=== PATIENT | male | born 1970 | race Caucasian/White ===

== ENCOUNTER 2020-12-06 22:10 | Emergency (ER) | payer BC ==
[~2020-12-06 22:10] MED LIST: Iopamidol-370 76% 500 ML 1 ML ONE
[2020-12-06 22:51] LABS: #Eosinphils 0.3 thou/uL (0.0-0.7); #Lymphocytes 1.4 thou/uL (1.20-3.40); #Monocytes 1.1 thou/uL (0.11-0.59); #Neutrophils 8.6 thou/uL (1.40-6.50); %Basophils 0.4 % (0.0-1.0); %Eosinophils 2.6 % (0.0-10.0); %Lymphocytes 11.9 % (21.0-51.0); %Monocytes 9.5 % (0.0-10.0); %Neutrophils 75.5 % (42.0-75.0); Hemoglobin 11.5 g/dL (14.0-18.0); Mean Corpuscular HGB CONC 34.3 g/dL (32.0-36.0); Mean Corpuscular Hemoglobin 28.7 pg (27.0-31.0); Mean Corpuscular Volume 83.6 fL (78.0-98.0); Mean Platelet Volume 7.1 fL (7.4-10.4); Platelet Count 261 thou/uL (130-400); RBC Distribution Width 11.4 % (11.5-14.5); Red Blood Cell (RBC) Count 4.02 mill/uL (4.70-6.10); White Blood Cell (WBC) Count 11.3 thou/uL (4.8-10.8)
[2020-12-06] MEDS ORDERED: Morphine 4 MG/ML VIAL ONE (23:07)
[2020-12-06] MEDS ORDERED: Acetaminophen 500 MG TAB ONE (23:08)
[2020-12-06] MEDS ORDERED: Ondansetron PF 4 MG/2 ML Vial ONE (23:08)
[2020-12-06 23:10] LABS: ALT (SGPT) 25 U/L (8-55); AST (SGOT) 31 U/L (5-34); Albumin 3.4 g/dL (3.5-5.0); Alkaline Phosphatase 121 U/L (40-110); Anion Gap 13 mmol/L (10-20); BUN (Urea Nitrogen) 13 mg/dL (8.9-20.6); Bilirubin, Total 0.7 mg/dL (0.2-1.2); Calc. Creatinine Clearance 0 mL/min (70-130); Calcium 8.6 mg/dL (7.8-10.44); Carbon Dioxide 33 mmol/L (22-29); Chloride 95 mmol/L (98-107); Globulin 3.1 g/dL (2.4-3.5); Glucose 116 mg/dL (70-105); Potassium 3.6 mmol/L (3.5-5.1); Protein, Total 6.5 g/dL (6.0-8.3); Sodium 137 mmol/L (136-145)
[2020-12-06] MEDS ORDERED: Ketorolac Tromethamine 30 MG/ML VIAL ONE (23:13)
[2020-12-07 01:20] LABS: Bacteria/HPF None Seen HPF (None Seen); Bilirubin Negative (Negative); Blood, Urine 1+ (Negative); Clarity Clear (Clear); Glucose, Urine (Dipstick) Normal (Negative); Ketone, Urine Negative (Negative); Leukocyte Negative Leu/uL (Negative); Nitrite Negative (Negative); Protein, Urine (Dipstick) 20 mg/dL (Neg-Trace); Squamous Epithelial None Seen HPF (0-3)
[2020-12-07 01:21] LABS: Specific Gravity, Urine 1.052 (1.002-1.036)
== END 2020-12-07 02:30 | disposition home or self-care (01) ==
LOC: ERS 22:10
DX: R10.9 Unspecified abdominal pain (principal); N13.30 Unspecified hydronephrosis; R59.0 Localized enlarged lymph nodes; Z87.442 Personal history of urinary calculi
CPT/HCPCS: 36415; 74177; 80053; 81003; 81015; 85025; 96374; 96375; J1885; J2270; J2405; Q9967

== ENCOUNTER 2020-12-16 08:16 | Outpatient (CLI) | payer BC ==
[2020-12-16 09:36] LABS: Bilirubin Neg (Negative); Blood, Urine 25 (Negative); Glucose, Urine (Dipstick) Normal (Negative); Ketone, Urine Negative (Negative); Leukocyte Negative (Negative); Nitrite Negative (Negative); Protein, Urine (Dipstick) Negative (Neg-Trace); Specific Gravity, Urine 1.005 (1.002-1.036); Urobilinogen Normal mg/dL (Less than 2)
[2020-12-16 09:41] LABS: Hemoglobin 10.7 g/dL (13.5-17.5); Mean Corpuscular HGB CONC 32.8 g/dL (32.0-36.0); Mean Corpuscular Hemoglobin 26.9 pg (27.0-33.0); Mean Corpuscular Volume 81.9 fl (81.2-95.1); Mean Platelet Volume 9.1 fl (7.4-10.4); Platelet Count 374 10x3/uL (150-450); RBC Distribution Width 12.6 % (11.5-14.5); Red Blood Cell (RBC) Count 3.98 10x6/uL (4.32-5.72); White Blood Cell (WBC) Count 17.5 10x3/uL (3.5-10.5)
[2020-12-16 09:50] LABS: Clarity Clear (Clear)
[2020-12-16 09:51] LABS: RBC/HPF 0-3 HPF (0-3); WBC/HPF 0-3 HPF (0-3)
[2020-12-16 09:52] LABS: Bacteria/HPF None Seen HPF (None Seen); Squamous Epithelial None Seen HPF (0-3)
[2020-12-16 09:58] LABS: INR-International Normal Ratio 1.1; PTT 30.1 sec (22.0-33.0); Prothrombin Time 11.8 sec (9.5-12.1)
[2020-12-16 10:18] LABS: Anion Gap 18 mmol/L (10-20); BUN (Urea Nitrogen) 19 mg/dL (8.9-20.6); Calc. Creatinine Clearance 0 mL/min (70-130); Calcium 9.1 mg/dL (7.8-10.44); Carbon Dioxide 30 mmol/L (22-29); Chloride 90 mmol/L (98-107); Glucose 152 mg/dL (70-105); Potassium 3.8 mmol/L (3.5-5.1); Sodium 134 mmol/L (136-145)
[2020-12-16 23:09] LABS: SARS-CoV-2 PCR by NAA Not Detected (NotDetected)
== END 2020-12-16 08:17 | disposition home or self-care (01) ==
LOC: LABBT 08:16
PROVIDERS: ATTEND Urology
DX: Z01.818 Encounter for other preprocedural examination (principal); N13.30 Unspecified hydronephrosis; R19.02 Left upper quadrant abdominal swelling, mass and lump; R59.0 Localized enlarged lymph nodes; Z20.822 Contact with and (suspected) exposure to COVID-19
CPT/HCPCS: 80048; 81001; 85027; 85610; 85730; 87086; 93005; 93010; U0003; U0005

== ENCOUNTER 2020-12-17 10:28 | Inpatient (IN) | payer BC ==
[2020-12-17 11:12] LABS: Hemoglobin 10.6 g/dL (14.0-18.0); Mean Corpuscular Hemoglobin 27.8 pg (27.0-31.0); Mean Corpuscular Volume 84.1 fL (78.0-98.0); Mean Platelet Volume 6.4 fL (7.4-10.4); Platelet Count 411 thou/uL (130-400); RBC Distribution Width 11.6 % (11.5-14.5); Red Blood Cell (RBC) Count 3.81 mill/uL (4.70-6.10); White Blood Cell (WBC) Count 20.4 thou/uL (4.8-10.8)
[2020-12-17 11:32] LABS: ALT (SGPT) 21 U/L (8-55); AST (SGOT) 25 U/L (5-34); Albumin 3.2 g/dL (3.5-5.0); Alkaline Phosphatase 166 U/L (40-110); Anion Gap 15 mmol/L (10-20); BUN (Urea Nitrogen) 27 mg/dL (8.9-20.6); Bilirubin, Total 0.7 mg/dL (0.2-1.2); Calc. Creatinine Clearance 0 mL/min (70-130); Calcium 8.6 mg/dL (7.8-10.44); Carbon Dioxide 35 mmol/L (22-29); Chloride 88 mmol/L (98-107); Globulin 3.5 g/dL (2.4-3.5); Glucose 120 mg/dL (70-105); Protein, Total 6.7 g/dL (6.0-8.3); Sodium 134 mmol/L (136-145)
[2020-12-17 11:46] LABS: Band 3 % (5-11); Eosinophils 3 % (0-10); Lymphocytes 9 % (21-51); MDiff Complete? YES; Monocytes 5 % (0-10); Neutrophil 79 % (42-75); Platelet Morphology Comment Appears Adequate; RBC Morphology Normal
[2020-12-17] MEDS ORDERED: Morphine 4 MG/ML VIAL ONE (13:05)
[2020-12-17] MEDS ORDERED: Ondansetron PF 4 MG/2 ML Vial ONE (13:05)
[2020-12-17 13:23] LABS: Magnesium 2.7 mg/dL (1.6-2.6)
[2020-12-17 13:58] LABS: INR-International Normal Ratio 1.1; PTT 39.1 sec (22.9-36.1); Prothrombin Time 14.5 sec (12.0-14.7)
[2020-12-17] MEDS ORDERED: HYDROmorphone 0.5 MG/0.5 ML SYRINGE ONE ×2 (14:35→16:34)
[2020-12-17 17:08] LABS: Bilirubin Negative (Negative); Blood, Urine Negative (Negative); Clarity Clear (Clear); Glucose, Urine (Dipstick) Normal (Negative); Ketone, Urine Negative (Negative); Leukocyte Negative Leu/uL (Negative); Nitrite Negative (Negative); Protein, Urine (Dipstick) Negative (Neg-Trace); Specific Gravity, Urine 1.012 (1.002-1.036); Urobilinogen Normal mg/dL (Less than 2)
[2020-12-17] MEDS ORDERED: hydrALAZINE 20 MG/ML VIAL SLOW IVP PRN (18:10)
[2020-12-17] MEDS ORDERED: Acetaminophen 325 MG TAB PO PRN (18:10)
[2020-12-17] MEDS: Ondansetron PF 4 MG/2 ML Vial IVP PRN (18:38)
[2020-12-17 18:53] VITALS: BMI 30.4
[2020-12-17] MEDS ORDERED: HYDROcodone/Acetaminophen 5/325 mg Tablet PO PRN (21:04)
[2020-12-17] MEDS: HYDROcodone/Acetaminophen 10/325 mg Tablet PO PRN (21:25)
[2020-12-17] MEDS: Heparin 5,000 UNITS/ML VIAL SC SCH (21:31)
[2020-12-17] MEDS: Morphine 2 MG/ML VIAL SLOW IVP PRN (22:56)
[2020-12-18] MEDS: Sodium Chloride 0.9% 1,000 ML IV SCH ×5 (04:56→17:45)
[2020-12-18] MEDS: Ondansetron PF 4 MG/2 ML Vial IVP PRN ×4 (05:34→21:28)
[2020-12-18] MEDS: HYDROcodone/Acetaminophen 10/325 mg Tablet PO PRN ×3 (05:58→17:49)
[2020-12-18 07:07] LABS: #Basophils 0.1 thou/uL (0.0-0.2); #Eosinphils 0.4 thou/uL (0.0-0.7); #Lymphocytes 1.2 thou/uL (1.20-3.40); #Monocytes 1.3 thou/uL (0.11-0.59); #Neutrophils 17.1 thou/uL (1.40-6.50); %Basophils 0.3 % (0.0-1.0); %Lymphocytes 5.9 % (21.0-51.0); %Monocytes 6.6 % (0.0-10.0); %Neutrophils 85.2 % (42.0-75.0); Hemoglobin 9.9 g/dL (14.0-18.0); Mean Corpuscular HGB CONC 32.1 g/dL (32.0-36.0); Mean Platelet Volume 6.5 fL (7.4-10.4); Platelet Count 391 thou/uL (130-400); RBC Distribution Width 11.6 % (11.5-14.5); Red Blood Cell (RBC) Count 3.66 mill/uL (4.70-6.10); White Blood Cell (WBC) Count 20.1 thou/uL (4.8-10.8)
[2020-12-18 07:31] LABS: Anion Gap 16 mmol/L (10-20); BUN (Urea Nitrogen) 32 mg/dL (8.9-20.6); Calc. Creatinine Clearance 19 mL/min (70-130); Carbon Dioxide 29 mmol/L (22-29); Chloride 89 mmol/L (98-107); Glucose 100 mg/dL (70-105); Potassium 3.8 mmol/L (3.5-5.1); Sodium 130 mmol/L (136-145)
[2020-12-18] MEDS: Heparin 5,000 UNITS/ML VIAL SC SCH ×3 (08:06→20:10)
[2020-12-18] MEDS: Morphine 2 MG/ML VIAL SLOW IVP PRN ×3 (09:58→20:05)
[2020-12-18] MEDS ORDERED: ALPRAZolam 0.25 MG TAB PO SCH (12:30)
[2020-12-18] MEDS: ALPRAZolam 0.25 MG TAB PO PRN (21:36)
[2020-12-19] MEDS: Sodium Chloride 0.9% 1,000 ML IV SCH ×6 (00:58→23:14)
[2020-12-19 06:25] LABS: Hemoglobin 11.2 g/dL (14.0-18.0); Mean Corpuscular HGB CONC 32.6 g/dL (32.0-36.0); Mean Corpuscular Hemoglobin 27.5 pg (27.0-31.0); Mean Corpuscular Volume 84.2 fL (78.0-98.0); Mean Platelet Volume 6.6 fL (7.4-10.4); Platelet Count 441 thou/uL (130-400); RBC Distribution Width 11.8 % (11.5-14.5); Red Blood Cell (RBC) Count 4.07 mill/uL (4.70-6.10); White Blood Cell (WBC) Count 24.9 thou/uL (4.8-10.8)
[2020-12-19 06:38] LABS: ALT (SGPT) 18 U/L (8-55); AST (SGOT) 27 U/L (5-34); Albumin 3.1 g/dL (3.5-5.0); Alkaline Phosphatase 227 U/L (40-110); Anion Gap 21 mmol/L (10-20); BUN (Urea Nitrogen) 39 mg/dL (8.9-20.6); Bilirubin, Total 0.6 mg/dL (0.2-1.2); Calc. Creatinine Clearance 16 mL/min (70-130); Calcium 8.2 mg/dL (7.8-10.44); Carbon Dioxide 25 mmol/L (22-29); Chloride 90 mmol/L (98-107); Globulin 3.7 g/dL (2.4-3.5); Glucose 84 mg/dL (70-105); Potassium 4.5 mmol/L (3.5-5.1); Protein, Total 6.8 g/dL (6.0-8.3); Sodium 131 mmol/L (136-145)
[2020-12-19] MEDS: Heparin 5,000 UNITS/ML VIAL SC SCH ×2 (07:40→14:20)
[2020-12-19 08:48] LABS: Band 9 % (5-11); Eosinophils 4 % (0-10); Lymphocytes 8 % (21-51); MDiff Complete? YES; Monocytes 10 % (0-10); Neutrophil 69 % (42-75); Platelet Morphology Comment Appears Increased; Polychromasia SLIGHT = 2-3 cells (100X) (0-2/hpf)
[2020-12-19] MEDS ORDERED: Fentanyl 100 MCG/2 ML VIAL ONE ×2 (09:44→10:23)
[2020-12-19] MEDS ORDERED: B & O 30 MG SUPP ONE (10:12)
[2020-12-19] MEDS ORDERED: Iothalamate Meglumine 60% 50 ML VIAL FS ONE (10:12)
[2020-12-19] MEDS ORDERED: SUGAMMADEX SODIUM 200 MG/2 ML VIAL ONE (10:23)
[2020-12-19] MEDS ORDERED: PROPOFOL 200 MG/20 ML VIAL ONE (10:51)
[2020-12-19] MEDS ORDERED: Succinylcholine 200 MG/10 ml SYRINGE FS ONE (10:51)
[2020-12-19] MEDS ORDERED: Ondansetron PF 4 MG/2 ML Vial ONE (10:51)
[2020-12-19] MEDS ORDERED: Dexamethasone 20 MG/5 ML VIAL ONE (10:51)
[2020-12-19] MEDS ORDERED: Promethazine HCl 25 MG/ML VIAL IM PRN (12:13)
[2020-12-19] MEDS ORDERED: Ondansetron HCl/PF 4 MG/2 ML Vial IVP PRN (12:13)
[2020-12-19] MEDS ORDERED: Promethazine HCl 25 MG/ML VIAL IVPB PRN (12:13)
[2020-12-19] MEDS ORDERED: Oxybutynin 5 MG TAB PO PRN (12:32)
[2020-12-19] MEDS ORDERED: Labetalol HCl 100 MG/20 ML VIAL ONE (13:12)
[2020-12-19] MEDS: Morphine 2 MG/ML VIAL SLOW IVP PRN ×2 (13:51→20:52)
[2020-12-19] MEDS: HYDROcodone/Acetaminophen 10/325 mg Tablet PO PRN ×2 (15:34→21:50)
[2020-12-19] MEDS ORDERED: Polyethylene Glycol 3350 17 GM Packet PO PRN (20:32)
[2020-12-19] MEDS: ALPRAZolam 0.25 MG TAB PO PRN (23:15)
[2020-12-20] MEDS: Sodium Chloride 0.9% 1,000 ML IV SCH ×3 (03:30→16:59)
[2020-12-20] MEDS: Morphine 2 MG/ML VIAL SLOW IVP PRN ×6 (03:31→22:21)
[2020-12-20] MEDS: HYDROcodone/Acetaminophen 10/325 mg Tablet PO PRN ×5 (04:07→23:51)
[2020-12-20 07:16] LABS: Band 4 % (5-11); Lymphocytes 5 % (21-51); MDiff Complete? YES; Mean Corpuscular HGB CONC 32.5 g/dL (32.0-36.0); Mean Corpuscular Hemoglobin 27.5 pg (27.0-31.0); Mean Corpuscular Volume 84.6 fL (78.0-98.0); Mean Platelet Volume 6.7 fL (7.4-10.4); Monocytes 3 % (0-10); Neutrophil 88 % (42-75); Platelet Count 456 thou/uL (130-400); RBC Distribution Width 11.9 % (11.5-14.5); Red Blood Cell (RBC) Count 3.64 mill/uL (4.70-6.10); White Blood Cell (WBC) Count 23.9 thou/uL (4.8-10.8)
[2020-12-20 07:59] LABS: ALT (SGPT) 14 U/L (8-55); AST (SGOT) 19 U/L (5-34); Albumin 2.8 g/dL (3.5-5.0); Alkaline Phosphatase 195 U/L (40-110); Anion Gap 14 mmol/L (10-20); BUN (Urea Nitrogen) 28 mg/dL (8.9-20.6); Bilirubin, Total 0.3 mg/dL (0.2-1.2); Calc. Creatinine Clearance 37 mL/min (70-130); Calcium 7.9 mg/dL (7.8-10.44); Carbon Dioxide 27 mmol/L (22-29); Chloride 98 mmol/L (98-107); Globulin 3.2 g/dL (2.4-3.5); Glucose 149 mg/dL (70-105); Potassium 4.3 mmol/L (3.5-5.1); Sodium 135 mmol/L (136-145)
[2020-12-20] MEDS: ALPRAZolam 0.25 MG TAB PO PRN (19:39)
[2020-12-21] MEDS: Sodium Chloride 0.9% 1,000 ML IV SCH ×2 (01:28→07:36)
[2020-12-21] MEDS: Morphine 2 MG/ML VIAL SLOW IVP PRN ×5 (01:59→21:06)
[2020-12-21] MEDS: ALPRAZolam 0.25 MG TAB PO PRN ×2 (04:36→21:08)
[2020-12-21] MEDS: HYDROcodone/Acetaminophen 10/325 mg Tablet PO PRN ×5 (04:36→22:35)
[2020-12-21 07:44] LABS: Anion Gap 12 mmol/L (10-20); BUN (Urea Nitrogen) 13 mg/dL (8.9-20.6); Calc. Creatinine Clearance 85 mL/min (70-130); Carbon Dioxide 27 mmol/L (22-29); Chloride 97 mmol/L (98-107); Glucose 93 mg/dL (70-105); Sodium 132 mmol/L (136-145)
[2020-12-21 09:17] LABS: Band 9 % (5-11); Hemoglobin 9.6 g/dL (14.0-18.0); Lymphocytes 5 % (21-51); MDiff Complete? YES; Mean Corpuscular HGB CONC 32.4 g/dL (32.0-36.0); Mean Corpuscular Hemoglobin 27.4 pg (27.0-31.0); Mean Corpuscular Volume 84.5 fL (78.0-98.0); Mean Platelet Volume 6.6 fL (7.4-10.4); Monocytes 7 % (0-10); Neutrophil 79 % (42-75); Platelet Count 424 thou/uL (130-400); White Blood Cell (WBC) Count 25.2 thou/uL (4.8-10.8)
[2020-12-21] MEDS ORDERED: Sodium Chloride 0.9% 1,000 ML IV SCH (12:14)
[2020-12-22] MEDS: Morphine 2 MG/ML VIAL SLOW IVP PRN ×5 (00:43→16:29)
[2020-12-22] MEDS: HYDROcodone/Acetaminophen 10/325 mg Tablet PO PRN ×5 (01:47→17:08)
[2020-12-22 06:55] LABS: Hemoglobin 10.6 g/dL (14.0-18.0); Mean Corpuscular HGB CONC 32.8 g/dL (32.0-36.0); Mean Corpuscular Hemoglobin 27.8 pg (27.0-31.0); Mean Corpuscular Volume 84.9 fL (78.0-98.0); Mean Platelet Volume 6.2 fL (7.4-10.4); Platelet Count 457 thou/uL (130-400); RBC Distribution Width 12.1 % (11.5-14.5); White Blood Cell (WBC) Count 29.1 thou/uL (4.8-10.8)
[2020-12-22 07:11] LABS: Anion Gap 14 mmol/L (10-20); BUN (Urea Nitrogen) 11 mg/dL (8.9-20.6); Calc. Creatinine Clearance 93 mL/min (70-130); Calcium 8.4 mg/dL (7.8-10.44); Carbon Dioxide 30 mmol/L (22-29); Chloride 93 mmol/L (98-107); Glucose 83 mg/dL (70-105); Potassium 4.3 mmol/L (3.5-5.1); Sodium 133 mmol/L (136-145)
[2020-12-22 07:27] LABS: Band 1 % (5-11); Lymphocytes 7 % (21-51); MDiff Complete? YES; Monocytes 5 % (0-10); Neutrophil 87 % (42-75); Platelet Morphology Comment Appears Increased; Polychromasia SLIGHT = 2-3 cells (100X) (0-2/hpf)
[2020-12-22] MEDS ORDERED: Enoxaparin Sodium 40 MG/0.4 ML SYRINGE SC SCH ×2 (16:00→21:00)
[2020-12-22 16:14] LABS: Bilirubin Negative (Negative); Blood, Urine 3+ (Negative); Clarity Clear (Clear); Glucose, Urine (Dipstick) Normal (Negative); Ketone, Urine Negative (Negative); Leukocyte 500 Leu/uL (Negative); Nitrite Negative (Negative); Protein, Urine (Dipstick) 100 mg/dL (Neg-Trace); RBC/HPF Greater than 50 HPF (0-3); Specific Gravity, Urine 1.017 (1.002-1.036); Squamous Epithelial None Seen HPF (0-3); WBC/HPF Greater than 50 HPF (0-3)
[2020-12-22 16:32] LABS: Bacteria/HPF 1+ HPF (None Seen)
[2020-12-22 16:33] LABS: Urine Culture Reflex Yes Yes
[2020-12-22] MEDS ORDERED: Clindamycin/D5W 900 MG in Premix Bag 1 BAG IVPB SCH (18:45)
[2020-12-22] MEDS: ALPRAZolam 0.25 MG TAB PO PRN (20:32)
[2020-12-22] MEDS: Morphine ER 15 MG TAB PO SCH (20:32)
[2020-12-22] MEDS: Enoxaparin Sodium 40 MG/0.4 ML SYRINGE SC SCH (20:36)
[2020-12-23 07:48] LABS: Anion Gap 13 mmol/L (10-20); BUN (Urea Nitrogen) 11 mg/dL (8.9-20.6); Calc. Creatinine Clearance 118 mL/min (70-130); Calcium 8.2 mg/dL (7.8-10.44); Carbon Dioxide 31 mmol/L (22-29); Chloride 92 mmol/L (98-107); Glucose 82 mg/dL (70-105); Potassium 3.6 mmol/L (3.5-5.1); Sodium 132 mmol/L (136-145)
[2020-12-23] MEDS: Morphine ER 15 MG TAB PO SCH (08:21)
[2020-12-23 08:31] LABS: Hemoglobin 9.5 g/dL (14.0-18.0); Mean Corpuscular HGB CONC 31.4 g/dL (32.0-36.0); Mean Corpuscular Hemoglobin 26.4 pg (27.0-31.0); Mean Corpuscular Volume 84.2 fL (78.0-98.0); Mean Platelet Volume 6.3 fL (7.4-10.4); Platelet Count 417 thou/uL (130-400); RBC Distribution Width 12.1 % (11.5-14.5); White Blood Cell (WBC) Count 29.1 thou/uL (4.8-10.8)
[2020-12-23 08:33] LABS: Band 7 % (5-11); Eosinophils 1 % (0-10); Lymphocytes 6 % (21-51); MDiff Complete? YES; Monocytes 4 % (0-10); Neutrophil 81 % (42-75); Platelet Morphology Comment Appears Increased; Polychromasia SLIGHT = 2-3 cells (100X) (0-2/hpf); Reactive Lymphocytes 1 % (0-10)
[2020-12-23] MEDS ORDERED: Clindamycin/D5W 900 mg/50 ml Premix Bag ONE (09:47)
[2020-12-23] MEDS ORDERED: Bupivacaine 0.25% HCL 30 ML VIAL ONE (10:17)
[2020-12-23] MEDS ORDERED: Lidocaine 1% w/Epinephrine 1:100K 20 ML VIAL ONE (10:17)
[2020-12-23] MEDS ORDERED: Fentanyl 100 MCG/2 ML VIAL ONE (10:51)
[2020-12-23] MEDS ORDERED: Ondansetron PF 4 MG/2 ML Vial ONE (11:10)
[2020-12-23] MEDS ORDERED: Lidocaine 1% PF 5 ML VIAL ONE (11:10)
[2020-12-23] MEDS ORDERED: PROPOFOL 200 MG/20 ML VIAL ONE (11:10)
[2020-12-23] MEDS ORDERED: Promethazine HCl 25 MG/ML VIAL IVPB PRN (11:50)
[2020-12-23] MEDS ORDERED: Ondansetron HCl/PF 4 MG/2 ML Vial IVP PRN (11:50)
[2020-12-23] MEDS ORDERED: Promethazine HCl 25 MG/ML VIAL IM PRN (11:50)
[2020-12-23] MEDS: HYDROcodone/Acetaminophen 10/325 mg Tablet PO PRN ×2 (12:29→16:23)
[2020-12-23] MEDS: Morphine ER 30 MG TAB PO SCH (20:35)
[2020-12-23] MEDS: Enoxaparin Sodium 40 MG/0.4 ML SYRINGE SC SCH (20:36)
[2020-12-23] MEDS: ALPRAZolam 0.25 MG TAB PO PRN (20:36)
[2020-12-24] MEDS: HYDROcodone/Acetaminophen 10/325 mg Tablet PO PRN ×4 (01:46→16:12)
[2020-12-24 07:30] LABS: #Basophils 0.1 thou/uL (0.0-0.2); #Eosinphils 0.3 thou/uL (0.0-0.7); #Lymphocytes 1.4 thou/uL (1.20-3.40); #Monocytes 1.6 thou/uL (0.11-0.59); #Neutrophils 21.6 thou/uL (1.40-6.50); %Basophils 0.2 % (0.0-1.0); %Eosinophils 1.1 % (0.0-10.0); %Lymphocytes 5.8 % (21.0-51.0); %Monocytes 6.3 % (0.0-10.0); %Neutrophils 86.6 % (42.0-75.0); Mean Corpuscular HGB CONC 32.9 g/dL (32.0-36.0); Mean Corpuscular Hemoglobin 27.3 pg (27.0-31.0); Mean Corpuscular Volume 83.2 fL (78.0-98.0); Mean Platelet Volume 6.3 fL (7.4-10.4); Platelet Count 423 thou/uL (130-400); RBC Distribution Width 12.1 % (11.5-14.5); Red Blood Cell (RBC) Count 3.28 mill/uL (4.70-6.10)
[2020-12-24 07:49] LABS: Anion Gap 12 mmol/L (10-20); BUN (Urea Nitrogen) 9 mg/dL (8.9-20.6); Calc. Creatinine Clearance 128 mL/min (70-130); Calcium 8.1 mg/dL (7.8-10.44); Carbon Dioxide 31 mmol/L (22-29); Chloride 94 mmol/L (98-107); Glucose 93 mg/dL (70-105); Potassium 3.5 mmol/L (3.5-5.1); Sodium 133 mmol/L (136-145)
[2020-12-24] MEDS: Morphine ER 30 MG TAB PO SCH (08:36)
[2020-12-24 16:23] VITALS: BP 151/97; TEMP 98.3
== END 2020-12-24 16:37 | disposition home or self-care (01) | DRG 660 ==
LOC: ERS 10:28 → T4-B 15:26
PROVIDERS: ADMIT Internal Medicine; ATTEND Internal Medicine
PROC: 0T788DZ Dilation of Bilateral Ureters with Intraluminal Device, Via Natural or Artificial Opening Endoscopic (ICD-10-PCS; 2020-12-19)
PROC: BT141ZZ Fluoroscopy of Kidneys, Ureters and Bladder using Low Osmolar Contrast (ICD-10-PCS; 2020-12-19)
PROC: 0JH60WZ Insertion of Totally Implantable Vascular Access Device into Chest Subcutaneous Tissue and Fascia, Open Approach (ICD-10-PCS; principal; 2020-12-23)
PROC: 02HV33Z Insertion of Infusion Device into Superior Vena Cava, Percutaneous Approach (ICD-10-PCS; 2020-12-23)
PROC: B5181ZA Fluoroscopy of Superior Vena Cava using Low Osmolar Contrast, Guidance (ICD-10-PCS; 2020-12-23)
DX: N13.6 Pyonephrosis (principal); C16.9 Malignant neoplasm of stomach, unspecified; E87.1 Hypo-osmolality and hyponatremia; E87.3 Alkalosis; C77.2 Secondary and unspecified malignant neoplasm of intra-abdominal lymph nodes; N17.9 Acute kidney failure, unspecified; N18.5 Chronic kidney disease, stage 5; E86.0 Dehydration; G89.29 Other chronic pain; M54.9 Dorsalgia, unspecified; D63.1 Anemia in chronic kidney disease; K59.00 Constipation, unspecified; J44.9 Chronic obstructive pulmonary disease, unspecified; N50.89 Other specified disorders of the male genital organs; R33.9 Retention of urine, unspecified; Z87.442 Personal history of urinary calculi; Z80.42 Family history of malignant neoplasm of prostate; Z82.49 Family history of ischemic heart disease and other diseases of the circulatory system; Z88.0 Allergy status to penicillin; R19.02 Left upper quadrant abdominal swelling, mass and lump; Z01.818 Encounter for other preprocedural examination
CPT/HCPCS: 36415; 51702; 71045; 71046; 74176; 74420; 78451; 80048; 80053; 81001; 81003; 82378; 82570; 83735; 83935; 84300; 85025; 85027; 85610; 85730; 86850; 86900; 86901; 87086; 93005; 93010; 93970; 96374; 96375; 96376; A9540; C1788; C2617; J1100; J1170; J1642; J1650; J1956; J2270; J2405; J2704; J3010; J3490; J7050; Q9961; S0020; U0003; U0005

== ENCOUNTER 2021-01-05 18:44 | Inpatient (IN) | payer BC ==
[2021-01-05 19:30] LABS: Hemoglobin 8.7 g/dL (14.0-18.0); Mean Corpuscular HGB CONC 33.6 g/dL (32.0-36.0); Mean Corpuscular Hemoglobin 27.7 pg (27.0-31.0); Mean Corpuscular Volume 82.5 fL (78.0-98.0); Mean Platelet Volume 6.9 fL (7.4-10.4); Platelet Count 442 thou/uL (130-400); RBC Distribution Width 13.5 % (11.5-14.5); Red Blood Cell (RBC) Count 3.15 mill/uL (4.70-6.10); White Blood Cell (WBC) Count 41.4 thou/uL (4.8-10.8)
[2021-01-05] MEDS ORDERED: Ondansetron PF 4 MG/2 ML Vial ONE (19:39)
[2021-01-05] MEDS ORDERED: Fentanyl 100 MCG/2 ML VIAL ONE (19:39)
[2021-01-05 19:47] LABS: ALT (SGPT) 46 U/L (8-55); AST (SGOT) 51 U/L (5-34); Alkaline Phosphatase 744 U/L (40-110); Anion Gap 23 mmol/L (10-20); BUN (Urea Nitrogen) 70 mg/dL (8.9-20.6); Bilirubin, Total 3.3 mg/dL (0.2-1.2); CK (CPK) 27 U/L (30-200); Calc. Creatinine Clearance 0 mL/min (70-130); Calcium 8.5 mg/dL (7.8-10.44); Carbon Dioxide 36 mmol/L (22-29); Globulin 3.6 g/dL (2.4-3.5); Glucose 109 mg/dL (70-105); Lipase 602 U/L (8-78); Potassium 4.5 mmol/L (3.5-5.1); Protein, Total 6.6 g/dL (6.0-8.3); Sodium 127 mmol/L (136-145)
[2021-01-05 19:51] LABS: Band 56 % (5-11); Lymphocytes 7 % (21-51); MDiff Complete? YES; Neutrophil 36 % (42-75); Platelet Morphology Comment Appears Increased; Polychromasia SLIGHT = 2-3 cells (100X) (0-2/hpf); Reactive Lymphocytes 1 % (0-10)
[2021-01-05 20:20] LABS: Chloride 73 mmol/L (98-107)
[2021-01-05] MEDS ORDERED: Morphine 4 MG/ML VIAL ONE (20:42)
[2021-01-05] MEDS ORDERED: Ondansetron ODT 4 MG TAB SL PRN (22:30)
[2021-01-05] MEDS ORDERED: Ondansetron PF 4 MG/2 ML Vial IVP PRN (22:30)
[2021-01-05] MEDS ORDERED: Acetaminophen 650 MG Suppository PR PRN (22:37)
[2021-01-05] MEDS ORDERED: Acetaminophen 325 MG TAB PO PRN (22:37)
[2021-01-05] MEDS: Morphine 4 MG/ML VIAL SLOW IVP PRN (22:46)
[2021-01-05 22:48] VITALS: BMI 29.9
[2021-01-05] MEDS: Sodium Chloride 0.9% 1,000 ML IV SCH (23:28)
[2021-01-05] MEDS ORDERED: Lorazepam 0.5 MG TAB PO SCH (23:30)
[2021-01-06] MEDS: Morphine 4 MG/ML VIAL SLOW IVP PRN ×5 (01:59→20:32)
[2021-01-06] MEDS: HYDROcodone/Acetaminophen 10/325 mg Tablet PO PRN ×3 (03:10→19:23)
[2021-01-06] MEDS ORDERED: Cefepime 2 GM in Sodium Chloride 0.9% 100 ML IVPB SCH (03:15)
[2021-01-06 03:52] LABS: Anion Gap 25 mmol/L (10-20); BUN (Urea Nitrogen) 72 mg/dL (8.9-20.6); Calc. Creatinine Clearance 15 mL/min (70-130); Calcium 7.8 mg/dL (7.8-10.44); Carbon Dioxide 31 mmol/L (22-29); Chloride 76 mmol/L (98-107); Glucose 98 mg/dL (70-105); Potassium 4.4 mmol/L (3.5-5.1); Sodium 128 mmol/L (136-145)
[2021-01-06 04:07] LABS: White Blood Cell (WBC) Count 46.9 thou/uL (4.8-10.8)
[2021-01-06] MEDS ORDERED: VANCOMYCIN 1.75 GM/350 ML BAG 1.75 GM in Premix Bag 1 BAG IVPB SCH (04:30)
[2021-01-06 04:43] LABS: Band 21 % (5-11); Hemoglobin 8.7 g/dL (14.0-18.0); Lymphocytes 3 % (21-51); MDiff Complete? YES; Mean Corpuscular HGB CONC 34.4 g/dL (32.0-36.0); Mean Corpuscular Hemoglobin 28.5 pg (27.0-31.0); Mean Corpuscular Volume 82.9 fL (78.0-98.0); Mean Platelet Volume 7.4 fL (7.4-10.4); Monocytes 3 % (0-10); Neutrophil 73 % (42-75); Platelet Count 472 thou/uL (130-400); Platelet Morphology Comment Appears Increased; RBC Distribution Width 13.6 % (11.5-14.5); Red Blood Cell (RBC) Count 3.06 mill/uL (4.70-6.10)
[2021-01-06] MEDS ORDERED: FLU VACC QS2021-22(6MOS UP)/PF 60 MCG/0.5 ML SYRINGE IM ONE (09:00)
[2021-01-06] MEDS ORDERED: Prevnar 13-Val Conj/PF 0.5 ML SYRINGE IM ONE (09:00)
[2021-01-06] MEDS: Sodium Chloride 0.9% 1,000 ML IV SCH ×3 (09:46→16:22)
[2021-01-06] MEDS: Heparin 5,000 UNITS/ML VIAL SC SCH ×3 (09:53→20:26)
[2021-01-06] MEDS ORDERED: Ondansetron HCl/PF 4 MG in Sodium Chloride 0.9% 50 ML IVPB PRN (10:04)
[2021-01-06] MEDS ORDERED: fentaNYL 50 mcg/hour Patch TD SCH (11:00)
[2021-01-06] MEDS: Pantoprazole 40 MG VIAL IVP SCH (13:01)
[2021-01-06 14:52] LABS: SARS-CoV-2 PCR by NAA Not Detected (NotDetected)
[2021-01-06] MEDS: Cefepime 1 GM in Sodium Chloride 0.9% 100 ML IVPB SCH (16:12)
[2021-01-06] MEDS ORDERED: Amino Acids 4.25 %/Dextrose 5% 2,000 ML BAG IV SCH (18:00)
[2021-01-06] MEDS: Ondansetron HCl/PF 8 MG in Sodium Chloride 0.9% 50 ML IVPB PRN (20:27)
[2021-01-06] MEDS: Amino Acids 4.25 %/Dextrose 5% 1,000 ML IV SCH (23:13)
[2021-01-07] MEDS: Pantoprazole 40 MG VIAL IVP SCH ×3 (01:41→21:59)
[2021-01-07] MEDS: Morphine 4 MG/ML VIAL SLOW IVP PRN ×5 (01:43→22:00)
[2021-01-07] MEDS ORDERED: Pantoprazole 40 MG VIAL IVP SCH (01:45)
[2021-01-07] MEDS: Sodium Chloride 0.9% 1,000 ML IV SCH ×2 (02:41→12:43)
[2021-01-07] MEDS: Lorazepam 0.5 MG TAB PO PRN ×2 (03:41→12:51)
[2021-01-07] MEDS: Heparin 5,000 UNITS/ML VIAL SC SCH (07:52)
[2021-01-07] MEDS: HYDROcodone/Acetaminophen 10/325 mg Tablet PO PRN ×3 (10:05→19:19)
[2021-01-07 11:39] LABS: Hemoglobin 8.2 g/dL (14.0-18.0); Mean Corpuscular HGB CONC 33.2 g/dL (32.0-36.0); Mean Corpuscular Hemoglobin 27.1 pg (27.0-31.0); Mean Corpuscular Volume 81.5 fL (78.0-98.0); Platelet Count 499 thou/uL (130-400); RBC Distribution Width 14.1 % (11.5-14.5); Red Blood Cell (RBC) Count 3.02 mill/uL (4.70-6.10); White Blood Cell (WBC) Count 47.9 thou/uL (4.8-10.8)
[2021-01-07 11:42] LABS: Anion Gap 25 mmol/L (10-20); BUN (Urea Nitrogen) 86 mg/dL (8.9-20.6); Calc. Creatinine Clearance 13 mL/min (70-130); Calcium 7.7 mg/dL (7.8-10.44); Carbon Dioxide 24 mmol/L (22-29); Chloride 77 mmol/L (98-107); Glucose 99 mg/dL (70-105); Potassium 4.4 mmol/L (3.5-5.1); Sodium 122 mmol/L (136-145)
[2021-01-07 12:01] LABS: Band 18 % (5-11); Lymphocytes 5 % (21-51); MDiff Complete? YES; Monocytes 3 % (0-10); Neutrophil 74 % (42-75); Platelet Morphology Comment Appears Increased; Polychromasia MODERATE = 3-4 cells (100X) (0-2/hpf)
[2021-01-07] MEDS: Cefepime 1 GM in Sodium Chloride 0.9% 100 ML IVPB SCH (15:19)
[2021-01-07] MEDS: Amino Acids 4.25 %/Dextrose 5% 1,000 ML IV SCH (19:09)
[2021-01-07] MEDS: Lorazepam 0.5 MG TAB PO SCH (22:00)
[2021-01-08] MEDS: Morphine 4 MG/ML VIAL SLOW IVP PRN ×5 (01:24→21:45)
[2021-01-08 05:06] LABS: Hemoglobin 8.4 g/dL (14.0-18.0); Mean Corpuscular HGB CONC 33.7 g/dL (32.0-36.0); Mean Corpuscular Hemoglobin 27.6 pg (27.0-31.0); Mean Corpuscular Volume 81.8 fL (78.0-98.0); Platelet Count 478 thou/uL (130-400); RBC Distribution Width 14.4 % (11.5-14.5); Red Blood Cell (RBC) Count 3.03 mill/uL (4.70-6.10); White Blood Cell (WBC) Count 51.5 thou/uL (4.8-10.8)
[2021-01-08 05:21] LABS: Anion Gap 26 mmol/L (10-20); BUN (Urea Nitrogen) 90 mg/dL (8.9-20.6); Calc. Creatinine Clearance 12 mL/min (70-130); Calcium 7.8 mg/dL (7.8-10.44); Carbon Dioxide 24 mmol/L (22-29); Chloride 75 mmol/L (98-107); Glucose 82 mg/dL (70-105); Potassium 4.7 mmol/L (3.5-5.1); Sodium 120 mmol/L (136-145)
[2021-01-08 05:48] LABS: Band 16 % (5-11); Lymphocytes 4 % (21-51); MDiff Complete? YES; Monocytes 8 % (0-10); Neutrophil 72 % (42-75); Platelet Morphology Comment Appears Increased; Toxic Granulation SLIGHT; Vacuoles SLIGHT
[2021-01-08 06:04] LABS: Vancomycin, Random 19.5 ug/mL (See Comment)
[2021-01-08] MEDS ORDERED: Vancomycin HCl 500 MG in Sodium Chloride 0.9% 100 ML IVPB SCH ×2 (06:30→09:00)
[2021-01-08] MEDS: HYDROcodone/Acetaminophen 10/325 mg Tablet PO PRN ×3 (06:54→20:02)
[2021-01-08] MEDS ORDERED: Fentanyl 100 MCG/2 ML VIAL ONE (07:33)
[2021-01-08] MEDS ORDERED: Midazolam HCl 2 mg/2 ml Vial ONE (07:33)
[2021-01-08] MEDS: Dronabinol 2.5 MG CAP PO SCH ×2 (09:46→18:39)
[2021-01-08] MEDS: Pantoprazole 40 MG VIAL IVP SCH ×2 (09:48→20:01)
[2021-01-08] MEDS: Lorazepam 0.5 MG TAB PO SCH ×3 (09:49→20:01)
[2021-01-08] MEDS: Cefepime 1 GM in Sodium Chloride 0.9% 100 ML IVPB SCH (15:44)
[2021-01-08] MEDS: fentaNYL 50 mcg/hour Patch TD SCH (15:45)
[2021-01-08] MEDS: Amino Acids 4.25 %/Dextrose 5% 1,000 ML IV SCH (15:50)
[2021-01-08 16:23] LABS: Anion Gap 23 mmol/L (10-20); BUN (Urea Nitrogen) 94 mg/dL (8.9-20.6); Calc. Creatinine Clearance 12 mL/min (70-130); Calcium 7.9 mg/dL (7.8-10.44); Carbon Dioxide 25 mmol/L (22-29); Chloride 77 mmol/L (98-107); Glucose 107 mg/dL (70-105); Potassium 4.7 mmol/L (3.5-5.1); Sodium 120 mmol/L (136-145)
[2021-01-08] MEDS ORDERED: Polyethylene Glycol 3350 17 GM Packet PO PRN (17:32)
[2021-01-08] MEDS ORDERED: Senokot 8.6 MG TAB PO PRN (17:34)
[2021-01-08] MEDS: Docusate 100 MG CAP PO SCH (20:01)
[2021-01-09] MEDS: HYDROcodone/Acetaminophen 10/325 mg Tablet PO PRN ×5 (00:21→20:20)
[2021-01-09] MEDS: Morphine 4 MG/ML VIAL SLOW IVP PRN ×6 (02:03→22:11)
[2021-01-09 02:05] LABS: Sodium, Urine 21 mmol/L (Not Available); Urea Nitrogen, Random Urine 400 mg/dl
[2021-01-09 02:07] LABS: Bilirubin Moderate (Negative); Blood, Urine Large (Negative); Glucose, Urine (Dipstick) 100 mg/dL (Negative); Ketone, Urine Negative (Negative); Leukocyte Negative (Negative); Nitrite Negative (Negative); Protein, Urine (Dipstick) 100 mg/dL (Neg-Trace); Specific Gravity, Urine 1.025 (1.005-1.030); Urobilinogen 0.2 mg/dL (Less than 2); pH, Urine 5.5 (5.0-9.0)
[2021-01-09 02:09] LABS: Clarity Clear (Clear)
[2021-01-09 02:13] LABS: Bacteria/HPF None Seen HPF (None Seen); RBC/HPF Greater than 50 HPF (0-3); Squamous Epithelial None Seen HPF (0-3); WBC/HPF 21-50 HPF (0-3)
[2021-01-09 02:19] LABS: Protein, Urine Random Quant 305 mg/dL (1-14)
[2021-01-09 05:28] LABS: Hemoglobin 8.2 g/dL (14.0-18.0); Mean Corpuscular HGB CONC 33.5 g/dL (32.0-36.0); Mean Corpuscular Hemoglobin 27.5 pg (27.0-31.0); Mean Platelet Volume 7.3 fL (7.4-10.4); Platelet Count 513 thou/uL (130-400); Red Blood Cell (RBC) Count 2.99 mill/uL (4.70-6.10); White Blood Cell (WBC) Count 57.1 thou/uL (4.8-10.8)
[2021-01-09 05:32] LABS: Vancomycin, Random 22.3 ug/mL (See Comment)
[2021-01-09 05:40] LABS: Anion Gap 27 mmol/L (10-20); BUN (Urea Nitrogen) 90 mg/dL (8.9-20.6); Calc. Creatinine Clearance 14 mL/min (70-130); Calcium 8.1 mg/dL (7.8-10.44); Carbon Dioxide 23 mmol/L (22-29); Chloride 77 mmol/L (98-107); Glucose 105 mg/dL (70-105); Potassium 4.4 mmol/L (3.5-5.1); Sodium 123 mmol/L (136-145)
[2021-01-09] MEDS ORDERED: Vancomycin 1 GM in Premix Bag 1 BAG IVPB SCH (06:00)
[2021-01-09 06:05] LABS: Anisocytosis SLIGHT = 6-15 cells (100X) (0-5/hpf); Band 9 % (5-11); Lymphocytes 5 % (21-51); MDiff Complete? YES; Monocytes 5 % (0-10); Neutrophil 81 % (42-75); Platelet Morphology Comment Appears Increased; Polychromasia SLIGHT = 2-3 cells (100X) (0-2/hpf)
[2021-01-09] MEDS ORDERED: METHYLNALTREXONE BROMIDE 150 MG PO SCH (09:00)
[2021-01-09] MEDS: Pantoprazole 40 MG VIAL IVP SCH ×2 (10:16→20:19)
[2021-01-09] MEDS: Docusate 100 MG CAP PO SCH ×2 (10:18→20:19)
[2021-01-09] MEDS: Lorazepam 0.5 MG TAB PO SCH ×3 (10:19→20:18)
[2021-01-09] MEDS: Dronabinol 2.5 MG CAP PO SCH ×2 (10:19→17:19)
[2021-01-09] MEDS: Heparin 5,000 UNITS/ML VIAL SC SCH ×3 (12:06→20:19)
[2021-01-09] MEDS: Amino Acids 4.25 %/Dextrose 5% 1,000 ML IV SCH (12:08)
[2021-01-09] MEDS: Cefepime 1 GM in Sodium Chloride 0.9% 100 ML IVPB SCH (14:15)
[2021-01-09] MEDS: Ondansetron HCl/PF 8 MG in Sodium Chloride 0.9% 50 ML IVPB PRN (22:52)
[2021-01-10] MEDS: HYDROcodone/Acetaminophen 10/325 mg Tablet PO PRN ×4 (00:09→12:19)
[2021-01-10] MEDS: Morphine 4 MG/ML VIAL SLOW IVP PRN ×6 (02:09→23:29)
[2021-01-10 04:57] LABS: Hemoglobin 7.8 g/dL (14.0-18.0); Mean Corpuscular HGB CONC 33.5 g/dL (32.0-36.0); Mean Corpuscular Hemoglobin 27.6 pg (27.0-31.0); Mean Corpuscular Volume 82.4 fL (78.0-98.0); Mean Platelet Volume 7.4 fL (7.4-10.4); Platelet Count 463 thou/uL (130-400); RBC Distribution Width 15.5 % (11.5-14.5); Red Blood Cell (RBC) Count 2.81 mill/uL (4.70-6.10); White Blood Cell (WBC) Count 58.2 thou/uL (4.8-10.8)
[2021-01-10 05:10] LABS: Vancomycin, Random 14.8 ug/mL (See Comment)
[2021-01-10 05:13] LABS: Anion Gap 24 mmol/L (10-20); BUN (Urea Nitrogen) 96 mg/dL (8.9-20.6); Calc. Creatinine Clearance 17 mL/min (70-130); Calcium 8.3 mg/dL (7.8-10.44); Carbon Dioxide 23 mmol/L (22-29); Chloride 75 mmol/L (98-107); Glucose 94 mg/dL (70-105)
[2021-01-10 05:16] LABS: Sodium 118 mmol/L (136-145)
[2021-01-10 05:19] LABS: Band 13 % (5-11); Lymphocytes 2 % (21-51); MDiff Complete? YES; Metamyelocyte 1 % (0-0); Monocytes 5 % (0-10); Neutrophil 79 % (42-75); Platelet Morphology Comment Appears Increased
[2021-01-10] MEDS ORDERED: Vancomycin HCl 500 MG in Sodium Chloride 0.9% 100 ML IVPB SCH (06:00)
[2021-01-10] MEDS: Lorazepam 0.5 MG TAB PO SCH ×3 (08:26→19:59)
[2021-01-10] MEDS: Docusate 100 MG CAP PO SCH ×2 (08:26→19:59)
[2021-01-10] MEDS: Heparin 5,000 UNITS/ML VIAL SC SCH ×3 (08:27→19:59)
[2021-01-10] MEDS: Amino Acids 4.25 %/Dextrose 5% 1,000 ML IV SCH (08:28)
[2021-01-10] MEDS: Pantoprazole 40 MG VIAL IVP SCH ×2 (08:29→20:00)
[2021-01-10] MEDS ORDERED: Sodium Chloride 0.9% 1,000 ML IV SCH (08:45)
[2021-01-10] MEDS: Dronabinol 2.5 MG CAP PO SCH ×2 (10:06→17:36)
[2021-01-10] MEDS: Cefepime 1 GM in Sodium Chloride 0.9% 100 ML IVPB SCH (14:28)
[2021-01-10 16:30] LABS: Anion Gap 25 mmol/L (10-20); BUN (Urea Nitrogen) 93 mg/dL (8.9-20.6); Calc. Creatinine Clearance 19 mL/min (70-130); Calcium 8.6 mg/dL (7.8-10.44); Carbon Dioxide 18 mmol/L (22-29); Chloride 78 mmol/L (98-107); Glucose 102 mg/dL (70-105); Potassium 4.6 mmol/L (3.5-5.1); Sodium 116 mmol/L (136-145)
[2021-01-10] MEDS ORDERED: Sodium Chloride 3% 100 ML IVPB SCH (17:30)
[2021-01-10 17:55] VITALS: BP 123/79
[2021-01-10] MEDS: Morphine ER 30 MG TAB PO SCH (20:00)
[2021-01-10] MEDS: Morphine IR Tab 15 MG TAB PO PRN (21:38)
[2021-01-11 01:08] LABS: Anion Gap 22 mmol/L (10-20); BUN (Urea Nitrogen) 96 mg/dL (8.9-20.6); Calc. Creatinine Clearance 19 mL/min (70-130); Calcium 8.3 mg/dL (7.8-10.44); Carbon Dioxide 26 mmol/L (22-29); Chloride 77 mmol/L (98-107); Glucose 96 mg/dL (70-105); Potassium 3.8 mmol/L (3.5-5.1); Sodium 121 mmol/L (136-145)
[2021-01-11] MEDS: Morphine IR Tab 15 MG TAB PO PRN ×3 (01:30→12:45)
[2021-01-11] MEDS: Morphine 4 MG/ML VIAL SLOW IVP PRN ×3 (03:34→14:50)
[2021-01-11] MEDS: Amino Acids 4.25 %/Dextrose 5% 1,000 ML IV SCH ×2 (03:35→23:34)
[2021-01-11 05:39] LABS: Hemoglobin 7.4 g/dL (14.0-18.0); Mean Corpuscular HGB CONC 32.6 g/dL (32.0-36.0); Mean Corpuscular Hemoglobin 26.6 pg (27.0-31.0); Mean Corpuscular Volume 81.6 fL (78.0-98.0); Mean Platelet Volume 7.5 fL (7.4-10.4); Platelet Count 481 thou/uL (130-400); RBC Distribution Width 15.6 % (11.5-14.5); Red Blood Cell (RBC) Count 2.77 mill/uL (4.70-6.10); White Blood Cell (WBC) Count 67.4 thou/uL (4.8-10.8)
[2021-01-11 05:53] LABS: Anisocytosis SLIGHT = 6-15 cells (100X) (0-5/hpf); Band 7 % (5-11); Lymphocytes 5 % (21-51); MDiff Complete? YES; Monocytes 6 % (0-10); Neutrophil 82 % (42-75); Platelet Morphology Comment Appears Increased; Polychromasia SLIGHT = 2-3 cells (100X) (0-2/hpf)
[2021-01-11 05:57] LABS: Vancomycin, Random 15.3 ug/mL (See Comment)
[2021-01-11 05:59] LABS: ALT (SGPT) 68 U/L (8-55); AST (SGOT) 155 U/L (5-34); Albumin 2.7 g/dL (3.5-5.0); Alkaline Phosphatase 1406 U/L (40-110); Anion Gap 21 mmol/L (10-20); BUN (Urea Nitrogen) 96 mg/dL (8.9-20.6); Calc. Creatinine Clearance 21 mL/min (70-130); Calcium 8.2 mg/dL (7.8-10.44); Carbon Dioxide 26 mmol/L (22-29); Chloride 77 mmol/L (98-107); Globulin 3.3 g/dL (2.4-3.5); Glucose 110 mg/dL (70-105); Lipase 546 U/L (8-78); Potassium 3.6 mmol/L (3.5-5.1); Sodium 120 mmol/L (136-145)
[2021-01-11] MEDS ORDERED: Sodium Chloride 3% 100 ML IVPB SCH ×2 (07:00→18:00)
[2021-01-11] MEDS: Morphine ER 30 MG TAB PO SCH ×2 (08:21→20:27)
[2021-01-11] MEDS: Dronabinol 2.5 MG CAP PO SCH ×2 (08:21→17:42)
[2021-01-11] MEDS: Pantoprazole 40 MG VIAL IVP SCH ×2 (08:21→20:27)
[2021-01-11] MEDS: Docusate 100 MG CAP PO SCH ×2 (08:21→20:27)
[2021-01-11] MEDS: Lorazepam 0.5 MG TAB PO SCH ×3 (08:21→20:27)
[2021-01-11] MEDS: Heparin 5,000 UNITS/ML VIAL SC SCH ×3 (08:22→20:27)
[2021-01-11 13:36] LABS: Anion Gap 22 mmol/L (10-20); BUN (Urea Nitrogen) 98 mg/dL (8.9-20.6); Calc. Creatinine Clearance 22 mL/min (70-130); Calcium 8.4 mg/dL (7.8-10.44); Carbon Dioxide 24 mmol/L (22-29); Chloride 79 mmol/L (98-107); Glucose 113 mg/dL (70-105); Potassium 3.6 mmol/L (3.5-5.1); Sodium 121 mmol/L (136-145)
[2021-01-11] MEDS: Cefepime 1 GM in Sodium Chloride 0.9% 100 ML IVPB SCH (14:49)
[2021-01-11] MEDS: fentaNYL 50 mcg/hour Patch TD SCH (14:49)
[2021-01-11 23:36] LABS: Calcium 8.3 mg/dL (7.8-10.44); Chloride 82 mmol/L (98-107); Potassium 3.7 mmol/L (3.5-5.1); Sodium 125 mmol/L (136-145)
[2021-01-11 23:37] LABS: Glucose 117 mg/dL (70-105)
[2021-01-11 23:38] LABS: Carbon Dioxide 26 mmol/L (22-29)
[2021-01-11 23:40] LABS: Calc. Creatinine Clearance 23 mL/min (70-130)
[2021-01-11 23:41] LABS: BUN (Urea Nitrogen) 99 mg/dL (8.9-20.6)
[2021-01-12 00:03] LABS: Anion Gap 21 mmol/L (10-20)
[2021-01-12] MEDS: Morphine IR Tab 15 MG TAB PO PRN ×3 (03:24→16:03)
[2021-01-12 05:27] LABS: Hemoglobin 7.4 g/dL (14.0-18.0); Mean Corpuscular HGB CONC 33.8 g/dL (32.0-36.0); Mean Corpuscular Hemoglobin 27.8 pg (27.0-31.0); Mean Corpuscular Volume 82.2 fL (78.0-98.0); Mean Platelet Volume 7.6 fL (7.4-10.4); Platelet Count 451 thou/uL (130-400); RBC Distribution Width 16.2 % (11.5-14.5); Red Blood Cell (RBC) Count 2.66 mill/uL (4.70-6.10); White Blood Cell (WBC) Count 69.2 thou/uL (4.8-10.8)
[2021-01-12 05:42] LABS: Band 18 % (5-11); Hypochromia SLIGHT = 6-15 cells (100X) (0-5/hpf); Lymphocytes 1 % (21-51); MDiff Complete? YES; Monocytes 11 % (0-10); Neutrophil 70 % (42-75); Platelet Morphology Comment Appears Increased; Target Cells SLIGHT = 2-5 cells (100X) (0-1/hpf)
[2021-01-12 05:48] LABS: Anion Gap 19 mmol/L (10-20); BUN (Urea Nitrogen) 100 mg/dL (8.9-20.6); Calc. Creatinine Clearance 23 mL/min (70-130); Calcium 8.5 mg/dL (7.8-10.44); Carbon Dioxide 27 mmol/L (22-29); Chloride 81 mmol/L (98-107); Glucose 114 mg/dL (70-105); Potassium 3.7 mmol/L (3.5-5.1); Sodium 123 mmol/L (136-145)
[2021-01-12] MEDS: Morphine 4 MG/ML VIAL SLOW IVP PRN ×2 (06:41→13:32)
[2021-01-12] MEDS: Dronabinol 2.5 MG CAP PO SCH ×2 (08:42→16:12)
[2021-01-12] MEDS: Pantoprazole 40 MG VIAL IVP SCH (08:42)
[2021-01-12] MEDS: Docusate 100 MG CAP PO SCH (08:42)
[2021-01-12] MEDS: Lorazepam 0.5 MG TAB PO SCH ×3 (08:43→19:04)
[2021-01-12] MEDS: Morphine ER 30 MG TAB PO SCH ×2 (08:43→19:04)
[2021-01-12] MEDS: Heparin 5,000 UNITS/ML VIAL SC SCH ×2 (08:49→15:57)
[2021-01-12] MEDS: Cefepime 1 GM in Sodium Chloride 0.9% 100 ML IVPB SCH (15:57)
[2021-01-12 17:10] VITALS: TEMP 97.6
== END 2021-01-12 19:24 | disposition hospice, home (50) | DRG 682 ==
LOC: ERS 18:44 → 3SE 20:55 → 2NO 01-07 19:25 → IMCU/EMU 01-10 18:25
PROVIDERS: ADMIT Student in an Organized Health Care Education/Training Program; ATTEND Hospitalist
PROC: 0T9130Z Drainage of Left Kidney with Drainage Device, Percutaneous Approach (ICD-10-PCS; principal; 2021-01-09)
DX: N17.9 Acute kidney failure, unspecified (principal); K83.1 Obstruction of bile duct; J90 Pleural effusion, not elsewhere classified; E87.1 Hypo-osmolality and hyponatremia; C16.6 Malignant neoplasm of greater curvature of stomach, unspecified; E87.3 Alkalosis; C77.5 Secondary and unspecified malignant neoplasm of intrapelvic lymph nodes; C79.70 Secondary malignant neoplasm of unspecified adrenal gland; R64 Cachexia; N18.5 Chronic kidney disease, stage 5; M54.9 Dorsalgia, unspecified; N13.9 Obstructive and reflux uropathy, unspecified; G89.3 Neoplasm related pain (acute) (chronic); Z20.822 Contact with and (suspected) exposure to COVID-19; D72.829 Elevated white blood cell count, unspecified; Z51.5 Encounter for palliative care; E88.09 Other disorders of plasma-protein metabolism, not elsewhere classified; E87.8 Other disorders of electrolyte and fluid balance, not elsewhere classified; D63.1 Anemia in chronic kidney disease; E86.0 Dehydration; D63.0 Anemia in neoplastic disease; E83.51 Hypocalcemia; K83.8 Other specified diseases of biliary tract; Z66 Do not resuscitate; Z88.0 Allergy status to penicillin; Z79.899 Other long term (current) drug therapy; Z68.30 Body mass index [BMI] 30.0-30.9, adult
CPT/HCPCS: 36415; 36416; 50430; 50432; 71045; 74022; 74176; 76705; 76770; 80048; 80053; 80202; 81001; 82150; 82378; 82550; 82570; 83605; 83615; 83690; 83880; 83930; 83935; 84156; 84300; 84436; 84443; 84484; 84540; 84550; 85025; 87040; 87086; 93005; 93975; 93976; 96374; 96375; C9113; J0692; J1644; J2250; J2270; J2405; J3010; J3370; J3490; J7050; J7131; Q0167; U0003; U0005